=== PATIENT | male | born 1935 | race Caucasian/White ===

== ENCOUNTER 2017-02-08 14:36 | Inpatient (IN) | payer MEDICARE, BC ==
[~2017-02-08] VITALS: Ht 182.9 cm; Wt 80.1 kg
[~2017-02-08 14:36] MED LIST: ALBUTEROL SULFAT3 M3 IH; ATARAX; ATROVENT 2.5 M2.5 ML IH; ATROVENT INHALE14 GM IH; ATROVENT0.018 MG/A IH; BLOOD SUGAR MED; CITIRIZINE PO; COMBIVENT INH14.7 GM IH; DIFLUCAN 100MG100 MG PO; FORADIL IH; GLIPIZIDE AND M1 TA1 PO; GLIPIZIDE5 MG PO; GLUCOTROL5 MG PO; GLUCOVANCE 2.51 TAB PO; HYDRALAZINE HCL25 MG PO; Hydralazine; LASIX PO; LEVAQUIN 250MG250 MG PO; LEVAQUIN 750MG750 M1 PO; LISINOPRIL10 MG PO; NORCO 325 MG-7.1 TAB PO; PLAVIX 75MG TAB75 MG PO; PRAVACHOL 20MG20 MG PO; PRAVACHOL10 MG PO; PREDNISONE20 MG PO; PULMICORT; PULMICORT0.5 MG/2 M IH; PULMICORT0.5 MG/21 IH; PULMOCORT; SINGULAIR10 MG PO; SPIRIVA INH IH; TENORMIN 2525 MG/TAB PO; THEO-DUR300 MG PO; THEODUR; THEODUR 300MG PO; THEODUR PO; XOPENEX 1.1.25 MG/3 IH; ZANTAC150 MG PO; ZYRTEC10 MG PO
[2017-02-08 15:23] LABS: BASO # 0.1 (0.0-0.2); BASO % 0.4 % (0.0-2.0); EOS % 0.2 % (0-4.0); GRAN # 13.9 (1.4-6.5); GRAN % 85.6 % (42.2-75.2); HEMATOCRIT 44.3 % (42.0-52.0); HEMOGLOBIN 15.2 g/dl (13.5-18.0); MEAN CELL VOLUME 85 fl (80.0-100.0); MEAN CORPUSCULAR HEMOGLOBIN 29 pg (27.0-31.0); MEAN CORPUSCULAR HGB CONC 34 g/dl (33.0-37.0); MEAN PLATELET VOLUME 10.4 fl (7.4-10.4); MONO # 1.2 (0.1-0.6); MONO % 7.4 % (1.7-9.3); PLATELET COUNT 264 K/mm3 (130-400); RED BLOOD COUNT 5.23 M/mm3 (4.20-5.60); REDCELL DISTRIBUTION WIDTH-CV 14.3 % (11.5-14.5); WHITE BLOOD COUNT 16.3 K/mm3 (4.8-10.8)
[2017-02-08 15:33] LABS: ADJUSTED CALCIUM 9.5 mg/dL (8.4-10.2); ALANINE AMINOTRANSFERASE 17 U/L (21-72); ALBUMIN 4.2 gm/dL (3.5-5.0); ALKALINE PHOSPHATASE 82 U/L (50-136); ANION GAP 14 mmol/L (7-16); BLOOD UREA NITROGEN 21 mg/dL (9-20); CALCIUM 9.7 mg/dL (8.4-10.2); CARBON DIOXIDE 19 mmol/L (22-30); CHLORIDE 108 mmol/L (98-107); CREATININE, serum 1.33 mg/dL (0.66-1.25); GLUCOSE 165 mg/dL (74-106); POTASSIUM 3.7 mmol/L (3.4-5.0); SODIUM 141 mmol/L (137-145); TOTAL PROTEIN 7.4 gm/dL (6.4-8.2)
[2017-02-08 15:45] LABS: B-TYPE NATRIURETIC PEPTIDE 365 pg/mL (0-450)
[2017-02-08 15:56] LABS: TROPONIN-I < 0.012 ng/mL (0.000-0.034)
[2017-02-08] MEDS ORDERED: FISH OIL 1000MG1 CAP PO (17:50)
[2017-02-08] MEDS ORDERED: TYLENOL 325MG325 MG PO (17:51)
[2017-02-08] MEDS ORDERED: VITAMINE200 PO (17:51)
[2017-02-08 18:06] VITALS: BP 123/58; PULSE 86; TEMP 97.8
[2017-02-08 21:28] VITALS: BP 141/65; PULSE 81; TEMP 98.2
[2017-02-08 23:47] VITALS: BP 136/71; PULSE 88; TEMP 97.5
[2017-02-09 04:27] VITALS: BP 145/72; PULSE 75; TEMP 98.4
[2017-02-09 07:40] LABS: BASO # 0.1 (0.0-0.2); BASO % 0.7 % (0.0-2.0); EOS # 0.3 (0.0-0.7); EOS % 3.6 % (0-4.0); GRAN # 6.5 (1.4-6.5); GRAN % 70.6 % (42.2-75.2); HEMATOCRIT 39.9 % (42.0-52.0); HEMOGLOBIN 13.8 g/dl (13.5-18.0); LYMPH # 1.4 (1.2-3.4); LYMPH % 15.3 % (20.0-51.0); MEAN CELL VOLUME 85 fl (80.0-100.0); MEAN CORPUSCULAR HEMOGLOBIN 30 pg (27.0-31.0); MEAN CORPUSCULAR HGB CONC 35 g/dl (33.0-37.0); MEAN PLATELET VOLUME 10.2 fl (7.4-10.4); MONO # 0.9 (0.1-0.6); MONO % 9.4 % (1.7-9.3); PLATELET COUNT 213 K/mm3 (130-400); RED BLOOD COUNT 4.68 M/mm3 (4.20-5.60); REDCELL DISTRIBUTION WIDTH-CV 14.3 % (11.5-14.5); WHITE BLOOD COUNT 9.2 K/mm3 (4.8-10.8)
[2017-02-09 07:52] LABS: CALCIUM 9.1 mg/dL (8.4-10.2); CREATININE, serum 1.12 mg/dL (0.66-1.25); POTASSIUM 3.7 mmol/L (3.4-5.0)
[2017-02-09 08:09] VITALS: BP 150/64; PULSE 85; TEMP 98.6
[2017-02-09 11:33] VITALS: BP 157/68; PULSE 63; TEMP 98.1
[2017-02-09] MEDS ORDERED: ZITHROMAX 250M250 MG PO (13:09)
== END 2017-02-09 14:00 | disposition home or self-care (01) | DRG 190 ==
LOC: COL.ER 14:36 → MEDICAL 16:24
PROVIDERS: Family Medicine; Physician Assistant
DX: J44.0 Chronic obstructive pulmonary disease with (acute) lower respiratory infection (principal); J18.9 Pneumonia, unspecified organism; N17.9 Acute kidney failure, unspecified; I10 Essential (primary) hypertension; E78.5 Hyperlipidemia, unspecified; Z86.73 Personal history of transient ischemic attack (TIA), and cerebral infarction without residual deficits; Z99.81 Dependence on supplemental oxygen; Z87.891 Personal history of nicotine dependence
CPT/HCPCS: 99222-AI; 99239; J0456; J0696; J1644; J7030; J7050

== ENCOUNTER 2018-12-02 12:31 | Emergency (ER) | payer MEDICARE, BC ==
[~2018-12-02] VITALS: Ht 182.9 cm; Wt 77.3 kg
[~2018-12-02 12:31] MED LIST changes: +FISH OIL 1000MG1 CAP PO; +TYLENOL 325MG325 MG PO; +VITAMINE200 PO; +ZITHROMAX 250M250 MG PO
[2018-12-02 12:37] VITALS: TEMP 97.7
[2018-12-02 12:59] LABS: BASO # 0.1 (0.0-0.2); BASO % 1.1 % (0.0-2.0); EOS # 0.1 (0.0-0.7); EOS % 1.1 % (0-4.0); GRAN # 7.7 (1.4-6.5); GRAN % 82.5 % (42.2-75.2); HEMATOCRIT 46.3 % (42.0-52.0); LYMPH % 10.3 % (20.0-51.0); MEAN CELL VOLUME 85 fl (80.0-100.0); MEAN CORPUSCULAR HEMOGLOBIN 29 pg (27.0-31.0); MEAN CORPUSCULAR HGB CONC 35 g/dl (33.0-37.0); MEAN PLATELET VOLUME 10.4 fl (7.4-10.4); MONO # 0.3 (0.1-0.6); MONO % 3.7 % (1.7-9.3); PLATELET COUNT 313 K/mm3 (130-400); RED BLOOD COUNT 5.44 M/mm3 (4.20-5.60); REDCELL DISTRIBUTION WIDTH-CV 13.3 % (11.5-14.5)
[2018-12-02 13:02] LABS: ALANINE AMINOTRANSFERASE 13 U/L (21-72); ALBUMIN 4.5 gm/dL (3.5-5.0); ALKALINE PHOSPHATASE 99 U/L (50-136); ANION GAP 13 mmol/L (7-16); AST,SGOT 24 U/L (15-37); BILIRUBIN,TOTAL 0.5 mg/dL (0.0-1.0); BLOOD UREA NITROGEN 18 mg/dL (9-20); CALCIUM 10.4 mg/dL (8.4-10.2); CARBON DIOXIDE 24 mmol/L (22-30); CHLORIDE 107 mmol/L (98-107); CREATININE, serum 1.25 (0.66-1.25); GLUCOSE 89 mg/dL (74-106); POTASSIUM 4.2 mmol/L (3.4-5.0); SODIUM 143 mmol/L (137-145); TOTAL PROTEIN 7.9 gm/dL (6.4-8.2)
[2018-12-02 13:17] LABS: TROPONIN-I < 0.012 ng/mL (0.000-0.035)
[2018-12-02 13:27] LABS: PROTHROMBIN TIME 11.1 SECONDS (9.7-12.8)
[2018-12-02] MEDS ORDERED: PREDNISONE20 MG PO (14:37)
--- NOTE | 2018-12-02 15:57 | NUR ---
KENDALL was called by ED Physician to meet with patient and family about home health options. Patient's family wanted resources on home health companies that service [place]. KENDALL provided the medicare[employer]gov resource list and answered their questions about home health and private duty companies.
[2018-12-02 17:19] VITALS: BP 168/92; PULSE 67
== END 2018-12-02 17:19 | disposition home or self-care (01) ==
LOC: COL.ER 12:31
PROVIDERS: Emergency Medicine
DX: R06.02 Shortness of breath (principal); J44.9 Chronic obstructive pulmonary disease, unspecified; E78.5 Hyperlipidemia, unspecified; M10.9 Gout, unspecified; Z86.73 Personal history of transient ischemic attack (TIA), and cerebral infarction without residual deficits; Z87.891 Personal history of nicotine dependence; Z99.81 Dependence on supplemental oxygen; Z79.51 Long term (current) use of inhaled steroids
CPT/HCPCS: J2930; J3475; J7030; J7040; Q9967

== ENCOUNTER → 2020-01-15 | Emergency (ER) | payer MEDICARE, BC ==
[~2020-01-15] VITALS: Ht 182.9 cm; Wt 68.6 kg
[~2020-01-15] MED LIST changes: +COMBIRESP IH; +FLOMAX 0.40.4 MG/CAP PO; +LIQUIFILM TEARS15 ML OU; +PERFOROMIS20 MCG/2 M IH; +PRILOSEC10 MG PO
[2020-01-15 17:39] VITALS: BP 131/82; PULSE 97; TEMP 97.7
[2020-01-15 18:27] LABS: BASO # 0.1 (0.0-0.2); BASO % 0.9 % (0.0-2.0); EOS # 0.1 (0.0-0.7); EOS % 1.7 % (0-4.0); GRAN # 5.9 (1.4-6.5); GRAN % 75.1 % (42.2-75.2); HEMATOCRIT 44.6 % (42.0-52.0); HEMOGLOBIN 15.3 g/dl (13.5-18.0); LYMPH % 12.3 % (20.0-51.0); MEAN CELL VOLUME 88 fl (80.0-100.0); MEAN CORPUSCULAR HEMOGLOBIN 30 pg (27.0-31.0); MEAN CORPUSCULAR HGB CONC 34 g/dl (33.0-37.0); MEAN PLATELET VOLUME 10.6 fl (7.4-10.4); MONO # 0.7 (0.1-0.6); MONO % 9.2 % (1.7-9.3); PLATELET COUNT 215 K/mm3 (130-400); RED BLOOD COUNT 5.06 M/mm3 (4.20-5.60); REDCELL DISTRIBUTION WIDTH-CV 13.8 % (11.5-14.5)
[2020-01-15 18:47] LABS: ALBUMIN 4.1 gm/dL (3.5-5.0); BILIRUBIN,TOTAL 0.4 mg/dL (0.0-1.0); C-REACTIVE PROTEIN 0.6 mg/dL (0.0-0.9); CALCIUM 9.9 mg/dL (8.4-10.2); CREATININE, serum 1.3 (0.66-1.25); POTASSIUM 3.9 mmol/L (3.4-5.0)
[2020-01-15 18:51] LABS: ARTERIAL BLD GAS O2 SATURATION 96.4 % (92-100); ARTERIAL BLD GAS TCO2 CT 22.8; ARTERIAL BLOOD GAS HCO3 21.9 meq/L (22-26); ARTERIAL BLOOD GAS PCO2 31.3 mmHg (35-45); ARTERIAL BLOOD GAS PO2 76.5 mmHg (80-100); ARTERIAL BLOOD GAS pH 7.46 (7.35-7.45)
[2020-01-15 18:58] LABS: TROPONIN-I 0.027 ng/mL (0.000-0.035)
== END ==
LOC: COL.ER 17:37
PROVIDERS: Emergency Medicine
DX: J44.1 Chronic obstructive pulmonary disease with (acute) exacerbation (principal); I10 Essential (primary) hypertension; E11.9 Type 2 diabetes mellitus without complications; Z87.891 Personal history of nicotine dependence; Z86.73 Personal history of transient ischemic attack (TIA), and cerebral infarction without residual deficits; Z79.52 Long term (current) use of systemic steroids
CPT/HCPCS: J7030; J7512